=== PATIENT | female | born 1975 | race Caucasian/White ===

== ENCOUNTER 2022-09-16 07:32 | Day surgery (SDC) | payer OTHER ==
[2022-09-11 11:41] VITALS: BMI 32.8
[2022-09-16 07:56] VITALS: TEMP 96.6
[2022-09-16] MEDS ORDERED: MIDAZOLAM HCL 2 MG/2 ML SINGLE DOSE VIAL ONE (08:18)
[2022-09-16] MEDS ORDERED: PROPOFOL 20 ML ONE (08:19)
[2022-09-16 09:15] VITALS: RESP 18
[2022-09-16 09:29] VITALS: BP 110/77; PULSE 77
== END 2022-09-16 09:40 | disposition home or self-care (01) ==
LOC: FASU 07:32
PROVIDERS: ATTEND Orthopaedic Surgery Hand Surgery
PROC: 01N50ZZ Release Median Nerve, Open Approach (ICD-10-PCS; principal; 2022-09-16 08:36)
DX: G56.01 Carpal tunnel syndrome, right upper limb (principal)
CPT/HCPCS: 81025